=== PATIENT | male | born 1965 ===

== ENCOUNTER 2018-01-09 06:24 | Day surgery (SDC) | payer BC ==
--- NOTE | 2018-01-08 21:45 | Pre-op HX & Phy Repo 2 SIG ---
DATE OF ADMISSION: 01/09/2018 DATE OF SURGERY: 01/09/2018. PREOPERATIVE DIAGNOSIS: Dense vitreous hemorrhage, left eye. BRIEF NOTE: This is the first [facility] admission for the patient, who is a very nice 52-year-old gentleman with longstanding diabetes and diabetic retinopathy. He has been diabetic at least since 2013, possibly longer. He also has hypertension and elevated cholesterol. He has undergone prior laser treatment and injections of Avastin, but his disease is at the point where he is showing recurrent hemorrhages and what appears to be progressive proliferation. He is admitted for vitrectomy in the left eye with extensive endolaser. MEDICATIONS: Current medications include oral medications for hypertension and insulin for diabetes. ALLERGIES: He has no known allergies. PHYSICAL EXAMINATION: Best vision at the time of admission was 20/40, +1 in the right eye, hand motions on the left with pressures of 13 in either eye. The anterior segments are quiet except for a pterygium on the left. The lenses are reasonably clear. Funduscopic examination of the right eye showed extensive proliferative retinopathy and areas of peripheral laser. There was diabetic macular edema. A very mild vitreous hemorrhage was seen. The left fundus showed a fairly severe vitreous hemorrhage obscuring posterior view. Previously, he was all attached with some laser. General physical examination was completed by the patient's labor relations officer. ASSESSMENT: Proliferative diabetic retinopathy, both eyes with recurrent hemorrhage, left eye. PLAN: The plan is to perform a pars plana vitrectomy with endolaser and membrane dissection as needed on the left eye. The risks and benefits of surgery have been gone over with the patient with potential infection, hemorrhage, glaucoma, and remote possibility of loss of the eye. The risk of anesthesia was discussed. The patient understands and consents to the surgery, which will be performed on tomorrow morning. Gavino Quezada M.D. DR: MARQUISE JOB#: [id number] CC: ANNEMARIE
[2018-01-09] VITALS (8 sets, daily range): BP systolic 162–186; BP diastolic 84–102
[~2018-01-09] VITALS: Ht 175.3 cm; Wt 59.0 kg
[~2018-01-09 06:24] MED LIST: Avastin 10mg Inj IVITRE ONE; Pred Forte 1% Opth Susp 1ml LEFT EYE SCH
--- NOTE | 2018-01-09 06:28 | Pre-Procedure Note/Attestation ---
Pre-Procedure Note/Attestation Complete Prior to Procedure Planned Procedure: left Procedure Narrative: PPV, membrane peel, endolaser left eye Indications for Procedure Pre-Operative Diagnosis: Dense diabetic vitreous hemorrhage Left eye Attestation I attest that I discussed the nature of the procedure; its benefits; risks and complications; and alternatives (and the risks and benefits of such alternatives ), prior to the procedure, with the patient (or the patient's legal community representative). I attest that, if there was a reasonable possibility of needing a blood transfusion, the patient (or the patient's legal community representative) was given the [facility] standardized written summary, pursuant to the Nestor Mendoza Blood Safety Act ([place] Health and Safety Code # 1645, as amended). I attest that I re-evaluated the patient just prior to the surgery and that there has been no change in the patient's H&P, except as documented below: DARNELL CLEMONS Jan 09, 2018 06:27
[2018-01-09] MEDS ORDERED: Povidone-Iodine 5% opth solution ONE (07:04)
[2018-01-09] MEDS ORDERED: Phenylephrine 2.5% Op 2ml Soln ONE (07:26)
[2018-01-09] MEDS ORDERED: Cyclopentolate 1% Opth Sol 2ml ONE (07:26)
[2018-01-09] MEDS ORDERED: Flurbiprofen 0.03% Opth Sol 2.5ml ONE (07:26)
[2018-01-09] MEDS ORDERED: Vigamox Opth Soln 3ml ONE (07:26)
[2018-01-09] MEDS ORDERED: VITAMIN D32000 UNI2 PO (07:43)
[2018-01-09] MEDS ORDERED: CARVEDILOL12.5 MG ORAL (07:43)
[2018-01-09] MEDS ORDERED: FERROUS SULFAT325 MG ORAL (07:43)
[2018-01-09] MEDS ORDERED: LEVOTHYROXINE75 MCG ORAL (07:43)
[2018-01-09] MEDS ORDERED: HYDRALAZINE HCL25 M1 ORAL (07:43)
[2018-01-09] MEDS ORDERED: FUROSEMIDE80 M1 ORAL (07:43)
[2018-01-09] MEDS ORDERED: LOSARTAN POTASS25 M1 PO (07:43)
[2018-01-09] MEDS ORDERED: RENVELA800 MG ORAL (07:43)
[2018-01-09] MEDS ORDERED: SODIUM BICARBO650 MG PO (07:43)
[2018-01-09] MEDS ORDERED: TRAZODONE HCL50 MG ORAL (07:43)
[2018-01-09] MEDS ORDERED: CATAPRES0.1 MG ORAL (07:43)
[2018-01-09] MEDS ORDERED: EPINEPHrine 1mg/1ml Amp ONE (07:54)
[2018-01-09] MEDS: Cyclopentolate 1% Opth Sol 2ml LEFT EYE SCH ×3 (08:20→08:33)
[2018-01-09] MEDS: Vigamox Opth Soln 3ml LEFT EYE SCH ×3 (08:21→08:33)
[2018-01-09] MEDS: Flurbiprofen 0.03% Opth Sol 2.5ml LEFT EYE SCH ×3 (08:21→08:33)
[2018-01-09] MEDS: Phenylephrine 2.5% Op 2ml Soln LEFT EYE SCH ×3 (08:21→08:33)
[2018-01-09 08:25] LABS: BASOPHILS % (AUTO) 0.6 % (0.0-2.0); EOSINOPHILS % (AUTO) 2.8 % (0.0-3.0); HEMATOCRIT 35.8 % (42.0-52.0); HEMOGLOBIN 11.5 G/DL (14.2-18.0); LYMPHOCYTES % (AUTO) 14.7 % (20.0-45.0); MEAN CORPUSCULAR VOLUME 91 FL (80-99); MONOCYTES % (AUTO) 8.6 % (1.0-10.0); NEUTROPHILS % (AUTO) 73.2 % (45.0-75.0); PLATELET COUNT 178 K/UL (150-450); RED BLOOD COUNT 3.95 M/UL (4.70-6.10); RED CELL DISTRIBUTION WIDTH 19.1 % (11.6-14.8); WHITE BLOOD COUNT 5.5 K/UL (4.8-10.8)
[2018-01-09] MEDS ORDERED: LR 1000ml 1,000 ML IVLG SCH (08:38)
--- NOTE | 2018-01-09 08:38 | Anethesia Preoperative Eval ---
Anesthesia Pre-op PMH/ROS General Date of Evaluation: Jan 09, 2018 Time of Evaluation: 08:52 Anesthesiologist: Gerry ASA Score: ASA 3 Mallampati Score Class I : Soft palate, uvula, fauces, pillars visible Class II: Soft palate, uvula, fauces visible Class III: Soft palate, base of uvula visible Class IV: Only hard plate visible Mallampati Classification: Class II Surgeon: Damien Diagnosis: Vitreous Hemorrhage OD Surgical Procedure: Vitrectomy OD Family History: no anesthesia problems Allergies: Coded Allergies: No Known Allergies (Unverified , 01/08/18) Medications: see eMAR Past Medical History Cardiovascular: Reports: HTN Gastrointestinal/Genitourinary: Reports: ESRD Endocrine: Reports: DM HEENT: Reports: other - Hemorrhage OS Hematology/Immune: Reports: anemia, other - L Testicle CA Anesthesia Pre-op Phys. Exam Physician Exam Last Vital Signs Date Time Temp Pulse Resp B/P (MAP) Pulse Ox O2 Delivery O2 Flow Rate FiO2 01/09/18 08:19 97.5 68 20 162/84 99 Room Air 97.5 Constitutional: NAD Neurologic: CN 2-12 intact Cardiovascular: RRR Respiratory: CTA Gastrointestinal: S/NT/ND Airway Exam Mallampati Score: Class II MO: limited ROM: limited Teeth: missing, intact Anesthesia Pre-op A/P Labs Hematology Test 01/09/18 08:10 White Blood Count 5.5 K/UL (4.8-10.8) Red Blood Count 3.95 M/UL (4.70-6.10) L Hemoglobin 11.5 G/DL (14.2-18.0) L Hematocrit 35.8 % (42.0-52.0) L Mean Corpuscular Volume 91 FL (80-99) Mean Corpuscular Hemoglobin 29.0 PG (27.0-31.0) Mean Corpuscular Hemoglobin Concent 32.1 G/DL (32.0-36.0) Red Cell Distribution Width 19.1 % (11.6-14.8) H Platelet Count 178 K/UL (150-450) Mean Platelet Volume 7.0 FL (6.5-10.1) Neutrophils (%) (Auto) 73.2 % (45.0-75.0) Lymphocytes (%) (Auto) 14.7 % (20.0-45.0) L Monocytes (%) (Auto) 8.6 % (1.0-10.0) Eosinophils (%) (Auto) 2.8 % (0.0-3.0) Basophils (%) (Auto) 0.6 % (0.0-2.0) Chemistry Test 01/09/18 08:10 Sodium Level Pending Potassium Level Pending Chloride Level Pending Carbon Dioxide Level Pending Blood Urea Nitrogen Pending Creatinine Pending Estimat Glomerular Filtration Rate Pending Glucose Level Pending Calcium Level Pending Risk Assessment & Plan Assessment: ASA 3 Plan: GA Status Change Before Surgery: Lui Griffin MD Jan 09, 2018 08:38
[2018-01-09] MEDS ORDERED: Midazolam 2mg/2ml Inj IVP PRN (08:45)
[2018-01-09] MEDS ORDERED: fentaNYL 100 mcg/2 mL IV PRN (08:45)
[2018-01-09] MEDS ORDERED: oxyCODONE HCL/Acetaminophen 5/325mg ORAL PRN (08:45)
[2018-01-09] MEDS ORDERED: LORazepam Inj 2mg/ml 1ml IV PRN (08:45)
[2018-01-09] MEDS ORDERED: DiphenhydrAMINE 50mg/ml Inj IVP PRN (08:45)
[2018-01-09] MEDS ORDERED: HYDROcodone/Acetamin 7.5/325 tab ORAL PRN (08:45)
[2018-01-09] MEDS ORDERED: Labetalol 5mg/ml 20ml vial IV PRN (08:45)
[2018-01-09] MEDS ORDERED: Ketorolac 30mg Inj IV PRN ×2 (08:45)
[2018-01-09] MEDS ORDERED: Atropine Inj 1mg/10ml Syr IV PRN (08:45)
[2018-01-09] MEDS ORDERED: Hydromorphone 0.5mg/0.5ml inj IVP PRN (08:45)
[2018-01-09] MEDS ORDERED: Norco 5mg/325mg tab ORAL PRN ×2 (08:45→15:01)
[2018-01-09 08:46] LABS: ANION GAP 5 mmol/L (5-15); BLOOD UREA NITROGEN 31 mg/dL (7-18); CARBON DIOXIDE 27 MMOL/L (21-32); CHLORIDE 103 MMOL/L (98-107); CREATININE 4.8 MG/DL (0.55-1.30); POTASSIUM 4.3 MMOL/L (3.5-5.1); SODIUM 135 MMOL/L (136-145)
[2018-01-09] MEDS ORDERED: Tetracaine 0.5% Opth 4ml Soln ONE (08:50)
[2018-01-09] MEDS ORDERED: BSS 500ml btl ONE (08:50)
[2018-01-09] MEDS ORDERED: Maxitrol Opth Oint 3.5gm ONE (08:50)
[2018-01-09] MEDS ORDERED: Dexamethasone 4mg/ml vial ONE (08:50)
[2018-01-09] MEDS ORDERED: BSS 15ml BTL ONE (08:51)
[2018-01-09] MEDS ORDERED: Bupivacaine 0.75% 30ml vial INJ ONE (08:51)
[2018-01-09] MEDS ORDERED: Lidocaine 2% MPF 5ml Vial INJ ONE (08:51)
[2018-01-09] MEDS ORDERED: Kenalog-10 5ml Inj ONE (08:51)
--- NOTE | 2018-01-09 08:56 | Immediate Post-Op Evaluation ---
Immediate Post-Op Evalulation Immediate Post-Op Evalulation Procedure: Vitrectomy OS Date of Evaluation: Jan 09, 2018 Time of Evaluation: 10:25 IV Fluids: 600 LR Blood Products: 0 Estimated Blood Loss: 1 Urinary Output: 0 Blood Pressure Systolic: 186 Blood Pressure Diastolic: 102 Pulse Rate: 69 Respiratory Rate: 16 O2 Sat by Pulse Oximetry: 99 Temperature (Fahrenheit): 98.5 Pain Score (1-10): 1 Nausea: No Vomiting: No Complications 0 Patient Status: awake, reacts, patent, none Hydration Status: adequate Lui Alegre MD Jan 09, 2018 08:56
--- NOTE | 2018-01-09 08:57 | 48 Hour Post Anesthesia Eval ---
Post Anesthesia Evaluation Procedure: Vitrectomy OS Date of Evaluation: Jan 09, 2018 Time of Evaluation: 12:32 Blood Pressure Systolic: 181 0: 99 Pulse Rate: 68 Respiratory Rate: 18 Temperature (Fahrenheit): 98.6 O2 Sat by Pulse Oximetry: 99 Airway: patent Nausea: No Vomiting: No Pain Intensity: 1 Hydration Status: adequate Cardiopulmonary Status: Stable Mental Status/LOC: patient returned to baseline Follow-up Care/Observations: 0 Post-Anesthesia Complications: 0 Follow-up care needed: ready to discharge Lui Alegre MD Jan 09, 2018 08:57
[2018-01-09] MEDS ORDERED: Lidocaine 1% MPF 10mg/ml 5ml ONE (09:00)
[2018-01-09] MEDS ORDERED: Propofol 200mg/20ml IV ONE (09:00)
[2018-01-09] MEDS ORDERED: NS Irrig 1000ml ONE (09:00)
[2018-01-09] MEDS ORDERED: Sterile Water Irrig 1000ml IRRIG ONE (09:00)
[2018-01-09] MEDS ORDERED: LR 1000ml ONE (09:00)
[2018-01-09] MEDS ORDERED: Midazolam 2mg/2ml Inj ONE (09:00)
--- NOTE | 2018-01-09 10:15 | Brief Operative Note ---
Immediate Post Operative Note Operative Note Chief Complaint: Vitreous Heme with traction L eye Pre-op Diagnosis: Dense diabetic vitreous hemorrhage Left eye Procedure: PPV, membrane peel. peripheral cryopexy, endolaser 1073 spots, gas-fluid exchange 25% SF-6, OS Post-op Diagnosis: same as pre-op plus - Peripheral tear with fluid Surgeon: yessy Anesthesiologist: Gerry Anesthesia: MAC Specimen: none Complications: none Condition: stable Fluids: Per anesthesia Estimated Blood Loss: none Drains: none Implant(s) used?: No DARNELL CLEMONS Jan 09, 2018 10:15
--- NOTE | 2018-01-09 17:15 | Operative Note - Dictated ---
DATE OF OPERATION: 01/09/2018 PREOPERATIVE DIAGNOSIS: Dense vitreous hemorrhage with severe traction, left eye. POSTOPERATIVE DIAGNOSIS: Vitreous hemorrhage with traction, left eye with peripheral retinal tear and localized fluid. PROCEDURES PERFORMED: 1. Pars plana vitrectomy. 2. Membrane peel. 3. Peripheral cryopexy. 4. Endolaser. 5. Kenalog injection. 6. Gas fluid exchange, left eye. SURGEON: Gavino Quezada M.D. MICROCOMPUTER SUPPORT SPECIALIST: None. ANESTHESIA: Local sedation. ANESTHESIOLOGIST: Dr. Alegre. JUSTIFICATION FOR SURGERY: This 52-year-old gentleman with longstanding diabetes, developed a dense hemorrhage, nonclearing in the left eye. BRIEF NOTE: The patient was brought to the operating room, placed on OR table in supine position. After a time-out was performed and agreed upon by the staff, and initial monitoring secured by Dr. Alegre, he was prepped and draped in normal manner. A lid speculum was inserted into the left eye. Using a 23-gauge trocar system, cannulas were placed all except infranasal quadrant. Infusion secured inferotemporally. Vitrectomy was begun posterior to the lens taking care to avoid contact. A central core vitrectomy was done followed by peripheral vitrectomy leaving a small vitreous skirt. Areas of traction along the inferotemporal arcade overlying the nerve were dissected and flushed and vitreous removed. Scleral depression was done and a small retinal tear was noted at the 3 o'clock position with a localized patch of subretinal fluid. It was decided to do a gas exchange and a peripheral cryo to treat this lesion. No other breaks were seen. The cryoprobe was brought into the field and several cryo lesions were used to surround the area of the tear and localized detachment. Prior to this, Endolaser had been brought to the eye and a power of 0.3 hernandez, duration 0.2 seconds, a total of 1073 lesions were applied in a broad band of panretinal laser and also barricading the peripheral break. An air-fluid exchange was then performed followed by gas-gas exchange at a 25% SF6, localizing the area of detachment. Kenalog 1 mg in 110 mL was injected. The superior cannulas were removed and the wounds closed with a single knot of 8-0 Vicryl with knots buried. The infusion cannula was removed and closed in a similar fashion. Subconjunctival Decadron and gentamicin were then injected and Maxitrol and atropine ointments were instilled. The eye was patched and shielded and the patient taken to recovery to be placed in a face-down position for one hour followed by right side down position overnight. Gavino Quezada M.D. DR: MARQUISE JOB#: [id number] CC:
--- NOTE | 2018-01-10 15:15 | Pre-op HX & Phy Repo 2 SIG ---
DATE OF ADMISSION: 01/09/2018 PRESURGICAL INTERNAL MEDICINE HISTORY AND PHYSICAL REASON FOR EVALUATION: I was asked by Dr. Gavino Quezada to see this 52-year-old male, who is going for elective surgery on the left eye. The patient has a vitreous hemorrhage, left eye. Please see full Ophthalmology History and Physical by Dr. Gavino Quezada. The patient was evaluated. Chart was reviewed at [facility] outpatient department. PAST MEDICAL HISTORY AND REVIEW OF SYSTEMS: Remarkable for history of hypertension, diabetes mellitus, nontreated end-stage renal disease. The patient is on dialysis, first dialysis January 08, 2018, history of anemia, and testicle cancer. Denied history of stroke or seizures. No history of chest pain, palpitation, or heart attack. The patient has history of hypothyroidism and weight loss approximately 70 pounds during the last 3 months. The patient had history of renal failure, started approximately 3 months ago. The patient was for 2 months at the [facility] inpatient and started dialysis there. SURGICAL HISTORY: Left testicular cancer removed and the right arm AV shunt. FAMILY HISTORY: Mother has a stroke and father was shot to kill. ALLERGIES: Not known. PRESENT MEDICATIONS: Include Lasix of 80 mg, losartan 50 mg, clonidine 0.1 milligram, hydralazine 75 mg 3 times a day, Coreg 1200 mg, clonazepam, and trazodone also ferrous sulfate. HABITS: The patient denies history of smoke or alcohol habits. No street drugs. PHYSICAL EXAMINATION: GENERAL: Alert well-developed, well-nourished, 52-year-old male, VITAL SIGNS: Blood pressure 167/84, temperature 97.5, pulse 68 regular, respirations 20, and O2 saturation 99% on room air. SKIN: Normal skin, pale, dry, warm. No ulcer or rashes. LYMPHATICS: Lymph nodes not enlarged. HEENT: Head, normocephalic and atraumatic. Ears, clear. Eyes, full description per Dr. Gavino Quezada. Mouth, clear and moist. No discharge. No dentures. NECK: Supple. Small lymph node on the mandibula. Trachea midline. CHEST: No deformity or asymmetry. LUNGS: Clear. No rales or rhonchi. No wheezing. HEART: Sinus rhythm, 68 per minute. No murmur. No S3-S4. ABDOMEN: Soft. No palpable mass. No rebound. Liver and spleen not enlarged. EXTREMITIES: No edema. No deformity. Varicose calf tenderness. The right subclavian previous shunt. GENITOURINARY: Urinary tract normal for gender with left testicle removed for cancer. The patient is on dialysis 3 times a week. NEUROLOGIC: No tremor. No nystagmus. ECG normal sinus rhythm at 65 per minute, left axis deviation, ST-T depression in the anterior lateral lead, ischemic. The patient did not eat or drink from midnight yesterday. Laboratory, white blood cells 5.5, hemoglobin 11.5, hematocrit 35.8. Sodium 135, potassium 4.3, BUN 31, creatinine 4.8. Estimated GFR 12.9. Blood sugar random 96 and calcium 9.0. IMPRESSION: 1. Vitreous hemorrhage, left eye. 2. Hypertension. 3. End-stage renal disease. 4. Hemodialysis for anemia. 5. Hypothyroidism. ECG changes lateral ischemia which left axis deviation. PLAN: Pars plana vitrectomy, 23 G. Membrane peeling, left eye per Dr. Gavino Quezada. CONCLUSION: This 52-year-old male, who has multiple medical problems include diabetes, end-stage renal disease, dialysis. He has a ECG changes when he is asymptomatic with no chest pain. Evaluation by wildlife photographer in the hospital. The patient spoke with anesthesiologist about a ECG changes and the patient's condition. The patient did not eat or drink from last night. The patient's condition optimized for surgery. Thank you very much, Dr. Quezada, for privilege to participate in the presurgical care of this interesting patient. Ezio Galindo M.D. DR: MARIANO JOB#: [id number] CC:
--- NOTE | 2018-01-13 16:25 | Cardiology Report ---
APPROVED REPORT EKG Measurement Heart [id number] Normal sinus rhythm Left axis deviation Prolonged QT Abnormal ECG
== END 2018-01-09 11:45 | disposition home or self-care (01) ==
LOC: SUR 06:24
DX: H43.12 Vitreous hemorrhage, left eye (principal); H33.312 Horseshoe tear of retina without detachment, left eye; I12.0 Hypertensive chronic kidney disease with stage 5 chronic kidney disease or end stage renal disease; E11.3593 Type 2 diabetes mellitus with proliferative diabetic retinopathy without macular edema, bilateral; E11.22 Type 2 diabetes mellitus with diabetic chronic kidney disease; N18.6 End stage renal disease; Z99.2 Dependence on renal dialysis; Z85.47 Personal history of malignant neoplasm of testis; E03.9 Hypothyroidism, unspecified; D64.9 Anemia, unspecified; E78.00 Pure hypercholesterolemia, unspecified; Z79.4 Long term (current) use of insulin
CPT/HCPCS: 36415; 67025; 67040; 67101; 80048; 82962; 85025; 93005; J0171; J1100; J2250; J2704; J3301; J3470; J3490; J7120; 94003; 94150

== ENCOUNTER 2018-08-26 05:54 | Day surgery (SDC) | payer BC, OTHER ==
--- NOTE | 2018-06-25 15:00 | Pre-op HX & Phy Repo 2 SIG ---
DATE OF ADMISSION: 06/26/2018 DATE OF SURGERY: 06/26/2018. PREOPERATIVE DIAGNOSIS: Nonclearing vitreous hemorrhage, right eye. BRIEF NOTE: This is a second [facility] admission for this patient, who is a very nice 53-year-old gentleman with severe proliferative diabetic retinopathy. He has had a recurrent and nonclearing vitreous hemorrhage in the right eye and is admitted for surgery. His past ocular history is remarkable for significant diabetic retinopathy. He has undergone prior laser treatment and Avastin injections. He underwent a vitrectomy in the left eye on January 10 and has done reasonably well since then. MEDICAL HISTORY: Remarkable for diabetes, hypertension, and elevated cholesterol, all present at least since 2013 and probably longer. PAST SURGICAL HISTORY: He had a history of testicular surgery in 2017 and prior knee surgery. MEDICATIONS: He is on oral medications for his diabetes and hypertension as well as cholesterol. ALLERGIES: He has no known allergies. PHYSICAL EXAMINATION: Best vision at the time of admission was 20/60- in the right eye, 20/70 in the left with pressures of 16 and 15. The anterior segment on the right was quiet. The left showed a mild nuclear cataract. Fundus examination of the right eye showed a moderate patent panretinal laser. There was a dense and mobile vitreous hemorrhage without significant traction. The left fundus showed a small amount of vitreous haze with a few resorbing red cells. The retina was well lasered and attached. ASSESSMENT: Nonclearing and recurrent vitreous hemorrhage, right eye. PLAN: The plan is to perform a pars plana vitrectomy with membrane dissection as needed as well as endolaser and Avastin. The risks and benefits of surgery have been gone over with the patient with potential infection, hemorrhage, cataract formation, retinal detachment, and remote possibility of loss of the eye. The risk of anesthesia was discussed. The patient understands and and consents to the surgery, which will be performed on tomorrow morning. Gavino Quezada M.D. DR: JUAN MANUEL JOB#: [id number] CC:
--- NOTE | 2018-08-23 18:15 | Pre-op HX & Phy Repo 2 SIG ---
DATE OF ADMISSION: 08/26/2018 DATE OF SURGERY: 08/26/2018. PREOPERATIVE DIAGNOSIS: Vitreous hemorrhage, recurrent, LEFT eye. BRIEF NOTE: This is the second [facility] admission for the patient, who is a very nice 53-year-old gentleman with severe proliferative diabetic retinopathy. He had a prior vitrectomy in the left eye in January and had done reasonably well until there was major recurrence a few weeks after surgery. The hemorrhage on the right eye has been a problem off and on. He has been scheduled for surgery at least once in the past, but had to cancel because of medical reasons. PAST MEDICAL HISTORY: Remarkable for diabetes, hypertension, elevated cholesterol, all present at least since 2013 and possibly longer. PAST SURGICAL HISTORY: He has a history of testicular surgery in 2017 and prior knee surgery. MEDICATIONS: He is on oral medications for his diabetes and hypertension as well as for his cholesterol. ALLERGIES: He has no known allergies. PHYSICAL EXAMINATION: Best vision at the time of admission was 20 / 50- in the right eye and hand motions in the left. The pressures were 14 and 15. The anterior segments were quiet. The left eye showed a gas cataract and a moderate pterygium. Fundus examination of the right eye showed moderate vitreous hemorrhage partially obscuring the of the posterior segment and the inferior retina. The left eye showed chronic optic disc neovascularization. The view was significantly obscured by a dense, recurrent, vitreous hemorrhage. There was diabetic macular edema a few microaneurysms. The periphery showed a cryo lesion from the temporal retinal tear that was well sealed. DIAGNOSTIC DATA: An ultrasound done on the left eye showed the retina to be all attached behind a moderately dense, freely mobile vitreous hemorrhage. The right eye had no ultrasound as the periphery and posterior pole could be reasonably well seen. ASSESSMENT: Recurrent, dense vitreous hemorrhage, LEFT eye. PLAN: The plan is to perform a pars plana vitrectomy with membrane dissection and endolaser as well as Avastin injection on the LEFT eye. The risks and benefits of surgery gone over the patient with potential infection, hemorrhage, glaucoma, recurrent elevation of the retina, and remote possibility of loss of the eye. The risks of anesthesia was discussed. The patient understands and consents to the surgery, which will be performed on the LEFT eye on Sunday morning. Gavino Quezada M.D. DR: JUAN MANUEL JOB#: [id number] CC: ANNEMARIE
[2018-08-26] VITALS (10 sets, daily range): BP systolic 146–170; BP diastolic 77–86
[~2018-08-26] VITALS: Ht 175.3 cm; Wt 64.9 kg
[~2018-08-26 05:54] MED LIST changes: +Bupivacaine 0.75% 30ml vial INJ ONE; +CARVEDILOL12.5 MG ORAL; +CATAPRES0.1 MG ORAL; +Cyclopentolate 1% Opth Sol 2ml RIGHT EYE SCH; +FERROUS SULFAT325 MG ORAL; +FUROSEMIDE80 M1 ORAL; +Flurbiprofen 0.03% Opth Sol 2.5ml RIGHT EYE SCH; +HYDRALAZINE HCL25 M1 ORAL; +LEVOTHYROXINE75 MCG ORAL; +LOSARTAN POTASS25 M1 PO; +Lidocaine 2% MPF 5ml Vial INJ ONE; +Phenylephrine 2.5% Op 2ml Soln RIGHT EYE SCH; -Pred Forte 1% Opth Susp 1ml LEFT EYE SCH; +Pred Forte 1% Opth Susp 1ml RIGHT EYE SCH; +RENVELA800 MG ORAL; +SODIUM BICARBO650 MG PO; +TRAZODONE HCL50 MG ORAL; +VITAMIN D32000 UNI2 PO; +Vigamox Opth Soln 3ml RIGHT EYE SCH
[2018-08-26] MEDS ORDERED: Vigamox Opth Soln 3ml RIGHT EYE SCH (06:00)
[2018-08-26] MEDS ORDERED: Cyclopentolate 1% Opth Sol 2ml RIGHT EYE SCH (06:00)
[2018-08-26] MEDS ORDERED: Phenylephrine 2.5% Op 2ml Soln RIGHT EYE SCH (06:00)
[2018-08-26] MEDS ORDERED: Flurbiprofen 0.03% Opth Sol 2.5ml RIGHT EYE SCH (06:00)
[2018-08-26] MEDS ORDERED: Avastin 10mg Inj IVITRE ONE (06:00)
[2018-08-26] MEDS ORDERED: Pred Forte 1% Opth Susp 1ml LEFT EYE ONE (06:45)
[2018-08-26] MEDS: Flurbiprofen 0.03% Opth Sol 2.5ml LEFT EYE SCH ×3 (06:55→07:06)
[2018-08-26] MEDS: Vigamox Opth Soln 3ml LEFT EYE SCH ×3 (06:55→07:06)
[2018-08-26] MEDS: Phenylephrine 2.5% Op 2ml Soln LEFT EYE SCH ×3 (06:55→07:06)
[2018-08-26] MEDS: Cyclopentolate 1% Opth Sol 2ml LEFT EYE SCH ×3 (06:55→07:06)
[2018-08-26 06:59] LABS: ANION GAP 10 mmol/L (5-15); BLOOD UREA NITROGEN 74 mg/dL (7-18); CALCIUM 8.7 MG/DL (8.5-10.1); CARBON DIOXIDE 25 MMOL/L (21-32); CHLORIDE 99 MMOL/L (98-107); CREATININE 7.2 MG/DL (0.55-1.30); POTASSIUM 5.3 MMOL/L (3.5-5.1); SODIUM 134 MMOL/L (136-145)
[2018-08-26 07:08] LABS: BASOPHILS % (AUTO) 1.2 % (0.0-2.0); EOSINOPHILS % (AUTO) 9.9 % (0.0-3.0); HEMATOCRIT 38.8 % (42.0-52.0); HEMOGLOBIN 12.7 G/DL (14.2-18.0); LYMPHOCYTES % (AUTO) 14.2 % (20.0-45.0); MEAN CORPUSCULAR VOLUME 98 FL (80-99); MONOCYTES % (AUTO) 11.5 % (1.0-10.0); NEUTROPHILS % (AUTO) 63.2 % (45.0-75.0); PLATELET COUNT 110 K/UL (150-450); RED BLOOD COUNT 3.95 M/UL (4.70-6.10); RED CELL DISTRIBUTION WIDTH 15.3 % (11.6-14.8)
[2018-08-26] MEDS ORDERED: Kenalog-40 1ml Vial ONE (07:10)
[2018-08-26] MEDS ORDERED: Dexamethasone 4mg/ml vial ONE (07:10)
[2018-08-26] MEDS ORDERED: EPINEPHrine 1mg/1ml Amp ONE (07:10)
[2018-08-26] MEDS ORDERED: Kenalog-10 5ml Inj ONE (07:10)
[2018-08-26] MEDS ORDERED: Lidocaine 2% MPF 5ml Vial INJ ONE (07:10)
[2018-08-26] MEDS ORDERED: Triamcinolone 40mg/ml PF Vial ONE (07:11)
[2018-08-26] MEDS ORDERED: Bupivacaine 0.75% 30ml vial INJ ONE (07:11)
[2018-08-26] MEDS ORDERED: BSS 500ml btl ONE (07:11)
[2018-08-26] MEDS ORDERED: Povidone-Iodine 5% opth solution ONE (07:11)
[2018-08-26] MEDS ORDERED: BSS 15ml BTL ONE (07:11)
[2018-08-26] MEDS ORDERED: Sodium Hyaluronate 10 mg/ml 0.85ml ONE (07:12)
[2018-08-26] MEDS ORDERED: Propofol 200mg/20ml IV ONE (07:20)
[2018-08-26] MEDS ORDERED: Midazolam 2mg/2ml Inj ONE (07:20)
--- NOTE | 2018-08-26 07:40 | Anethesia Preoperative Eval ---
Anesthesia Pre-op PMH/ROS General Date of Evaluation: Aug 26, 2018 Time of Evaluation: 07:25 Anesthesiologist: Mariely ASA Score: ASA 3 Mallampati Score Class I : Soft palate, uvula, fauces, pillars visible Class II: Soft palate, uvula, fauces visible Class III: Soft palate, base of uvula visible Class IV: Only hard plate visible Mallampati Classification: Class II Surgeon: Damien Diagnosis: Vitreous Hemorrhage left eye Surgical Procedure: Vitrectomy, membrane peel, endolaser Allergies: Coded Allergies: No Known Allergies (Unverified , 08/26/18) Medications: see eMAR Patient NPO?: Yes NPO Date: Aug 25, 2018 NPO Time: 20:00 Past Medical History Cardiovascular: Reports: HTN; Denies: CAD, OR, valve dz, arrhythmia, other Pulmonary: Denies: asthma, COPD, PÉREZ, other Gastrointestinal/Genitourinary: Reports: ESRD - Dialyzed 08/24; Denies: GERD, CRI, other Neurologic/Psychiatric: Denies: dementia, CVA, depression/anxiety, TIA, other Endocrine: Reports: DM; Denies: hypothyroidism, steroids, other HEENT: Denies: cataract (L), cataract (R), glaucoma, [place] (L), [place] (R), other Hematology/Immune: Denies: anemia, DVT, bleeding disorder, other Musculoskeletal/Integumentary: Denies: OA, RA, DJD, DDD, edema, other PMH Narrative: DM, HTN, ESRD on HD (08/24) PSxH Narrative: Left UE A-V fistula, eye surgery Anesthesia Pre-op Phys. Exam Physician Exam Last Vital Signs Date Time Temp Pulse Resp B/P (MAP) Pulse Ox O2 Delivery O2 Flow Rate FiO2 08/26/18 06:36 Room Air 08/26/18 06:26 98.3 73 18 157/82 98 98.3 Constitutional: NAD Neurologic: CN 2-12 intact Cardiovascular: RRR, no M/R/G Gastrointestinal: S/NT/ND Airway Exam Mallampati Score: Class II MO: full ROM: full Teeth: intact Anesthesia Pre-op A/P Labs Hematology Test 08/26/18 06:30 White Blood Count 5.0 K/UL (4.8-10.8) Red Blood Count 3.95 M/UL (4.70-6.10) L Hemoglobin 12.7 G/DL (14.2-18.0) L Hematocrit 38.8 % (42.0-52.0) L Mean Corpuscular Volume 98 FL (80-99) Mean Corpuscular Hemoglobin 32.3 PG (27.0-31.0) H Mean Corpuscular Hemoglobin Concent 32.9 G/DL (32.0-36.0) Red Cell Distribution Width 15.3 % (11.6-14.8) H Platelet Count 110 K/UL (150-450) L Mean Platelet Volume 8.5 FL (6.5-10.1) Neutrophils (%) (Auto) 63.2 % (45.0-75.0) Lymphocytes (%) (Auto) 14.2 % (20.0-45.0) L Monocytes (%) (Auto) 11.5 % (1.0-10.0) H Eosinophils (%) (Auto) 9.9 % (0.0-3.0) H Basophils (%) (Auto) 1.2 % (0.0-2.0) Chemistry Test 08/26/18 06:30 Sodium Level 134 MMOL/L (136-145) L Potassium Level 5.3 MMOL/L (3.5-5.1) H Chloride Level 99 MMOL/L (98-107) Carbon Dioxide Level 25 MMOL/L (21-32) Anion Gap 10 mmol/L (5-15) Blood Urea Nitrogen 74 mg/dL (7-18) H Creatinine 7.2 MG/DL (0.55-1.30) H Estimat Glomerular Filtration Rate 8.1 mL/min (>60) Glucose Level 94 MG/DL (74-106) Calcium Level 8.7 MG/DL (8.5-10.1) Risk Assessment & Plan Assessment: Class 3 patient for vitrectomy Plan: MAC, TIVA Status Change Before Surgery: No Pre-Antibiotics Drug: None Nestor Schuster MD Aug 26, 2018 07:40
--- NOTE | 2018-08-26 07:41 | Immediate Post-Op Evaluation ---
Immediate Post-Op Evalulation Immediate Post-Op Evalulation Procedure: Vitrectomy, membrane peel, endolaser left eye Date of Evaluation: Aug 26, 2018 Time of Evaluation: 09:00 IV Fluids: 100 Blood Pressure Systolic: 170 Blood Pressure Diastolic: 94 Pulse Rate: 72 Respiratory Rate: 18 O2 Sat by Pulse Oximetry: 100 Temperature (Fahrenheit): 98.2 Pain Score (1-10): 0 Nausea: No Vomiting: No Complications No complication Patient Status: awake, patent, none Hydration Status: adequate Drug: None Nestor Schuster MD Aug 26, 2018 07:41
[2018-08-26] MEDS ORDERED: Pred Forte 1% Opth Susp 1ml ONE (07:43)
[2018-08-26] MEDS ORDERED: Tetracaine 0.5% Opth 4ml Soln ONE (07:43)
[2018-08-26] MEDS ORDERED: NS Irrig 1000ml ONE (08:00)
[2018-08-26] MEDS ORDERED: Sterile Water Irrig 1000ml IRRIG ONE (08:00)
[2018-08-26] MEDS ORDERED: Maxitrol Opth Oint 3.5gm ONE (08:07)
--- NOTE | 2018-08-26 08:54 | 48 Hour Post Anesthesia Eval ---
Post Anesthesia Evaluation Procedure: Vitrectomy, membrane peel, endolaser left eye Date of Evaluation: Aug 26, 2018 Time of Evaluation: 09:30 Blood Pressure Systolic: 170 0: 86 Pulse Rate: 71 Respiratory Rate: 15 O2 Sat by Pulse Oximetry: 99 Airway: patent Nausea: No Vomiting: No Pain Intensity: 0 Hydration Status: adequate Cardiopulmonary Status: Stable Mental Status/LOC: patient returned to baseline Follow-up Care/Observations: As per surgery Post-Anesthesia Complications: No anesthetic complication Follow-up care needed: N/A Nestor Schuster MD Aug 26, 2018 08:54
--- NOTE | 2018-08-26 09:00 | Pre-op HX & Phy Repo 2 SIG ---
DATE OF ADMISSION: 08/26/2018 PRESURGICAL INTERNAL MEDICINE HISTORY AND PHYSICAL DATE OF EVALUATION: 08/26/2018. REASON FOR EVALUATION: I was asked by Dr. Gavino Quezada to see this 53-year-old male, who going for elective surgery on the left eye. The patient has a vitreous hemorrhage, left eye. The patient was evaluated. Chart was reviewed. PAST MEDICAL HISTORY AND REVIEW OF SYSTEMS: Remarkable for hypertension, diabetes mellitus, end-stage renal disease on hemodialysis, last dialysis August 24, 2018, history of hypothyroidism, and testicular cancer. No history of GI bleeding or GI symptoms. No stroke or seizures. No Parkinson disease. Denies history of chest pain, palpitation, or heart attack. No lung problem. PAST SURGICAL HISTORY: Eye surgery, left forearm AV shunt for dialysis a year ago, and orchiectomy for cancer of the testicle. FAMILY HISTORY: Mother from heart attack and father was killed. ALLERGIES: Not known. PRESENT MEDICATIONS: Include vitamin , levothyroxine, losartan, hydralazine, Coreg 12.5 mg, clonidine 0.1 mg, ferrous sulfate, furosemide 80 mg daily, , and sodium bicarbonate. HABITS: The patient smoked more than 20 years ago, for about year. Alcohol, yes, stopped five years ago. No street drugs. PHYSICAL EXAMINATION: VITAL SIGNS: Blood pressure 157/82, temperature 98.3, pulse 73 and regular, respirations 18, and O2 saturation 98% on room air. SKIN: Dry and pale. No diaphoresis. No rashes. No ulcers. HEENT: Head, normocephalic. Eye, full description per Dr. Gavino Quezada. Mouth, clear and moist. No dentures. Ears, clear. No discharge. NECK: Supple. No jugular vein distention. Carotids artery +2. Trachea midline. CHEST: No deformity or asymmetry. LUNGS: No rales or rhonchi. HEART: Sounds are regular. No murmur. No ectopy. No S3, S4. ABDOMEN: Soft. No palpable mass. No rebound. EXTREMITIES: No edema. Left forearm AV shunt for dialysis. GENITOURINARY: Positive testicular cancer more than 10 years ago. The patient is on hemodialysis. NEUROLOGIC: No tremor. No nystagmus. No asymmetry. DIAGNOSTIC AND LABORATORY DATA: ECG normal sinus rhythm, 73 per minute. Left ventricular hypertrophy. The patient is NPO since 5 p.m. yesterday. Laboratory, blood sugar 85 mg/dL. CBC, chemistry, and potassium pending. IMPRESSION: 1. Vitreous hemorrhage, left eye. 2. Hypertension, controlled. 3. Hypothyroidism. 4. Diabetes mellitus. 5. End-stage renal disease, on dialysis, last August 24, 2018. 6. History of testicular cancer. 7. Left ventricular hypertrophy on EKG. PLAN: Pars plana vitrectomy, membrane peel, endolaser, left eye per Dr. Gavino Quezada. CONCLUSION: The patient is a 53-year-old male, who has multiple medical problems include diabetes and hypertension complicated with end-stage renal disease on dialysis. The patient is asymptomatic. EKG shows sinus rhythm with left ventricular hypertrophy. The patient did not eat or drink from 5 p.m. last night. The patient's condition optimized for surgery. Thank you very much Dr. Quezada for privilege to participate in presurgical care of this interesting patient. Ezio Galindo M.D. DR: OBEY JOB#: [id number] CC:
--- NOTE | 2018-08-26 09:05 | Pre-Procedure Note/Attestation ---
Pre-Procedure Note/Attestation Complete Prior to Procedure Planned Procedure: left Procedure Narrative: PPV, endolaser, membrane peel, Avastin injection LEFT eye Indications for Procedure Pre-Operative Diagnosis: Recurrent clouding of vision after previous surgery LEFT eye. Attestation I attest that I discussed the nature of the procedure; its benefits; risks and complications; and alternatives (and the risks and benefits of such alternatives ), prior to the procedure, with the patient (or the patient's legal premium representative). I attest that, if there was a reasonable possibility of needing a blood transfusion, the patient (or the patient's legal premium representative) was given the [facility] standardized written summary, pursuant to the Nestor Mendoza Blood Safety Act ([place] Health and Safety Code # 1645, as amended). I attest that I re-evaluated the patient just prior to the surgery and that there has been no change in the patient's H&P, except as documented below: DARNELL CLEMONS Aug 26, 2018 09:05
--- NOTE | 2018-08-26 09:10 | Brief Operative Note ---
Immediate Post Operative Note Operative Note Chief Complaint: Recurrent clouding of vision after previous surgery LEFT eye. Pre-op Diagnosis: Recurrent vitreous hemorrhage LEFT eye. Procedure: PPV with washout, Endolaser (1324 spots), Avastin injection (1.25mg) LEFT eye Post-op Diagnosis: same as pre-op Surgeon: KACI Anesthesiologist: TREV Anesthesia: MAC Specimen: none Complications: none Condition: stable Fluids: Per Anesthesia Estimated Blood Loss: none Drains: none Implant(s) used?: No DARNELL CLEMONS Aug 26, 2018 09:10
[2018-08-26] MEDS ORDERED: Norco 5mg/325mg tab ORAL PRN (09:15)
--- NOTE | 2018-08-26 13:30 | Operative Note - Dictated ---
DATE OF OPERATION: 08/26/2018 PREOPERATIVE DIAGNOSIS: Recurrent vitreous hemorrhage, left eye. POSTOPERATIVE DIAGNOSIS: Recurrent vitreous hemorrhage, left eye. PROCEDURES: 1. Pars plana vitrectomy. 2. Endolaser. 3. Avastin injection, left eye. SURGEON: Gavino Quezada M.D. RATE ENGINEER: None. ANESTHESIA: Local with sedation. JUSTIFICATION FOR SURGERY: This is a 53-year-old gentleman with a long history of diabetes, underwent a successful vitrectomy for dense vitreous hemorrhage in the left eye several months ago. He did well until he developed recurrence of the vitreous hemorrhage, which has failed to adequately clear. He was admitted for vitrectomy. BRIEF NOTE: The patient was brought to the operating room, placed on the OR table in supine position. After a time-out was performed and agreed upon by the staff, an initial monitoring secured by Dr. Schuster. Retrobulbar and Van Lint blocks were given in the standard way in the left eye. When the blocks had taken effect, he was prepped and draped in the normal manner. A lid speculum was inserted into the left eye. Using a 23-gauge trocar system, cannulas were placed in all except infranasal quadrant. Infusion secured inferotemporally. Vitrectomy was begun posterior to the lens taking care to avoid contact. The vitreous blood was evacuated without complication. A limited peripheral vitrectomy was done removing clots of blood and leaving a small vitreous skirt. No peripheral pathology was noted at this time. Once the blood had cleared, there appeared to be active neovascularization on the optic nerve and a small site of principal bleeding along the inferotemporal arcade. Once the blood was cleared, the Endolaser was brought into the eye and direct laser/cauterization was performed at the site of the bleed inferotemporally. With the pressure lowered, bleeding was noted to have stopped. Additional endolaser was placed in a broad band, in the far periphery where there was light treatment and this was brought further peripherally just posterior to the equator. Several individual aneurysmal leaks posteriorly were also treated. Scleral depression was performed. Again, no peripheral tears, detachments or active bleeding sites were seen. The two superior cannulas were then removed from the eye and each individual sclerotomy closed with 8-0 Vicryl suture. The infusion line was disconnected and through the inferotemporal cannula a Avastin, 1.25 mg was injected. The eye was reinflated and this cannula also removed with the wound being subsequently closed with 8-0 Vicryl suture with a knot also buried. Subconjunctival Decadron and gentamicin were then injected inferiorly and topical Maxitrol and atropine ointments were instilled. Prednisolone and moxifloxacin drops were also given. The eye was then patched and shielded and the patient taken to recovery in excellent condition, to be placed in a face-up position. There were no complications. Gavino Quezada M.D. DR: JUAN MANUEL JOB#: [id number] CC: Gavino Quezada M.D.; Fax#: [phone] MTDD
--- NOTE | 2018-08-28 18:33 | Cardiology Report ---
APPROVED REPORT EKG Measurement Heart [id number] [place] [id number] Normal sinus rhythm Voltage criteria for left ventricular hypertrophy Abnormal ECG
== END 2018-08-26 10:10 | disposition home or self-care (01) ==
LOC: SUR 05:54
DX: H43.12 Vitreous hemorrhage, left eye (principal); E11.3512 Type 2 diabetes mellitus with proliferative diabetic retinopathy with macular edema, left eye; E11.22 Type 2 diabetes mellitus with diabetic chronic kidney disease; I12.0 Hypertensive chronic kidney disease with stage 5 chronic kidney disease or end stage renal disease; N18.6 End stage renal disease; Z99.2 Dependence on renal dialysis; E78.00 Pure hypercholesterolemia, unspecified; E03.9 Hypothyroidism, unspecified; Z85.47 Personal history of malignant neoplasm of testis; Z82.49 Family history of ischemic heart disease and other diseases of the circulatory system
CPT/HCPCS: 36415; 67039; 80048; 82962; 85025; 93005; J0171; J1100; J2250; J2704; J3470; J3490; 94003; 94150; J3300; J9035